=== PATIENT | female | born 1985 | race Caucasian/White ===

== ENCOUNTER 2023-09-20 10:32 | Emergency (ER) | payer OTHER ==
[~2023-09-20] VITALS: Ht 162.6 cm; Wt 77.1 kg
[2023-09-20 10:54] VITALS: BP 119/90
[2023-09-21 16:41] LABS: HEPATITIS B SURFACE ANTIBODY 25.37 IU/L
[2023-09-22 00:54] LABS: HCV QNT BY NAAT (IU/ML) Not Detected; HCV QNT BY NAAT (LOG IU/ML) Not Detected; HCV QNT BY NAAT INTERP Not Detected (Not Detected)
== END 2023-09-20 11:51 | disposition home or self-care (01) ==
LOC: ER 10:32
PROVIDERS: Physician Assistant
DX: S61.032A Puncture wound without foreign body of left thumb without damage to nail, initial encounter (principal); I10 Essential (primary) hypertension; W46.0XXA Contact with hypodermic needle, initial encounter; Y99.0 Civilian activity done for income or pay
CPT/HCPCS: 84460; 99282

== ENCOUNTER → 2023-10-30 | Outpatient (CLI) | payer BC | END | disposition home or self-care (01) | LOC: LAB SHORT 10:25 → LAB 10:25 | DX: N39.0 Urinary tract infection, site not specified (principal) | CPT/HCPCS: 87077; 87086; 87186 ==

== ENCOUNTER → 2023-12-19 | Outpatient (CLI) | payer BC ==
[2023-12-21 10:42] LABS: HIV 1,2 COMBO ANTIGEN/ANTIBODY Negative (Negative)
== END ==
LOC: LAB SHORT 10:40
PROVIDERS: Family Medicine
DX: Z20.9 Contact with and (suspected) exposure to unspecified communicable disease (principal)
CPT/HCPCS: 87389